=== PATIENT | male | born 1985 | race Caucasian/White ===

== ENCOUNTER 2022-01-18 12:33 | Emergency (ER) | payer OTHER ==
[2022-01-18] MEDS ORDERED: CEPHALEXIN500 MG PO (13:39)
[2022-01-18] MEDS ORDERED: POLYTRIM EYE DR10 ML OP (13:39)
== END 2022-01-18 13:44 | disposition home or self-care (01) ==
LOC: ER1 12:33
DX: S05.01XA Injury of conjunctiva and corneal abrasion without foreign body, right eye, initial encounter (principal); F17.210 Nicotine dependence, cigarettes, uncomplicated; Z88.1 Allergy status to other antibiotic agents; X58.XXXA Exposure to other specified factors, initial encounter
CPT/HCPCS: 99283